=== PATIENT | female | born 1995 | race African-American/Black ===

== ENCOUNTER 2016-12-13 15:12 | Emergency (ER) | payer SELFPAY ==
[2016-12-13 15:41] LABS: Bilirubin Negative (Negative); Blood, Urine Negative (Negative); Glucose, Urine (Dipstick) Negative (Negative); Ketone, Urine Negative (Negative); Nitrite Negative (Negative); Protein, Urine (Dipstick) Negative (Neg-Trace); Urobilinogen 0.2 mg/dL (0.2-1.0)
[2016-12-13] MEDS ORDERED: Lidocaine Viscous Sol 2% 15 ml UD Cup ONE (15:50)
[2016-12-13] MEDS ORDERED: Mag-Al Plus 1200 MG/1200 MG/120 MG/30 ML UDCUP ONE (15:51)
[2016-12-13] MEDS ORDERED: Ondansetron ODT 4 MG TAB ONE (15:52)
--- NOTE | 2016-12-13 16:20 | ERRECORD ---
[facility] EMERGENCY RECORD HPI GENERAL (15:31 KNGU) CHIEF COMPLAINT: Patient presents for evaluation of epigastric pain. HISTORIAN: History provided by patient, per patient hx of peptic ulcer / with epigastric pain after eating a hot and spicy lunch / nausea/ vomiting / no blood / no diarrhea no fever or chills. MECHANISM OF INJURY: Known mechanism. LOCATION: Symptoms are localized, most severe to epigastric region. QUALITY: Pain is dull in nature. SEVERITY: Maximum severity of symptoms moderate, Currently symptoms are mild. TIME COURSE: Gradual onset of symptoms, Symptoms are improving. ASSOCIATED WITH: No associated symptoms. EXACERBATED BY: Patient's condition exacerbated by spicy food. RELIEVED BY: Nothing tried for relief. ROS (15:33 KNGU) CONSTITUTIONAL: Negative constitutional review of systems. CARDIOVASCULAR: Negative cardiovascular review of systems. RESPIRATORY: Negative respiratory review of systems. GI: Historian reports abdominal pain, denies diarrhea, reports nausea, reports vomiting. GENITOURINARY FEMALE: Negative genitourinary review of systems. MUSCULOSKELETAL: Negative musculoskeletal review of systems. NEUROLOGIC: Negative neurologic review of systems. NOTES: All systems reviewed, negative except as described above. PAST MEDICAL HISTORY (15:22 BDON) MEDICAL HISTORY: Flu vaccine not up to date, Tetanus not up to date, Past medical history includes history of sexually transmitted disease, GENITAL WARTS, gestational diabetes, bronchitis. FEMALE SURGICAL HISTORY: Patient has no surgical history. PSYCHIATRIC HISTORY: No previous psychiatric history. SOCIAL HISTORY: Patient currently uses tobacco, smokes cigarettes, Lives at home, with family, Patient denies alcohol use, Patient denies drug use. FAMILY HISTORY: Family history is non-contributory to this case. KNOWN ALLERGIES No Known Allergies (Unconfirmed) No Known Drug Allergies CURRENT MEDICATIONS (15:19 BDON) &a-1R&a+25V*p+0X*j4257U*c202B*c15G*c2P*p-0X&a-25V&a+1R Name: Lisa Ramachandran : 1995 F21 MedRec: [id number] AcctNum: [id number] Prepared: [facility] Dec 13, 2016 16:37 by Interface Page 1 of 3 pMD [facility] EMERGENCY RECORD None VITAL SIGNS (15:16 BDON) VITAL SIGNS: BP: 129/67, Pulse: 94, Resp: 18, Temp: 99.0 (Oral), Pain: 7, O2 sat: 98, Time: 12/13/2016 15:16. PHYSICAL EXAM (15:36 KNGU) CONSTITUTIONAL: Vital signs reviewed, Patient afebrile, Pulse normal, Blood pressure normal, Respiratory rate normal, Patient appears non toxic, Patient appears pain free, Patient alert and oriented to person, place and time. HEAD: Head exam normal. EYES: Eye exam normal. RESPIRATORY CHEST: Respiratory and chest exam normal. CARDIOVASCULAR: Cardiovascular assessment normal. ABDOMEN FEMALE: Abdominal exam included findings of abdomen tender, to the epigastric region, mild intensity, Bowel sounds normal, no distension, no mass, no pulsatile masses, no peritoneal signs, Rovsing's sign absent, no inguinal hernia, no umbilical hernia. BACK: Back exam normal. SKIN: Skin exam normal. PSYCHIATRIC: Psychiatric exam included findings of patient oriented to person place and time. MEDICATION ADMINISTRATION SUMMARY Drug Name: ondansetron, Dose Ordered: 4 mg, Route: Sublingual, Status: Given, Time: 15:57 12/13/2016, Drug Name: GI COCKTAIL - WHITE, Dose Ordered: 40 mL, Route: Oral, Status: Given, Time: 15:56 12/13/2016, Detailed record available in Medication Service section. PROBLEM LIST No recorded problems DIAGNOSIS (15:56 KNGU) FINAL: PRIMARY: peptic ulcer. PRESCRIPTION acetaminophen-codeine: TABLET : 300 mg-30 mg : ORAL : Quantity: 1 Unit: tab(s) Route: ORAL Schedule: every 8 hours PRN Dispense: 10 Unit: tab(s) May substitute. Refills: No Refills . (15:55 KNGU) NOTES: for pain as needed No Refills. (15:55 KNGU) Zofran ODT: TABLET,DISINTEGRATING : 4 mg : ORAL : Quantity: 1 Unit: tab(s) Route: ORAL Schedule: every 8 hours PRN Dispense: 10 Unit: tab(s) May substitute. Refills: No Refills . (15:56 KNGU) &a-1R&a+25V*p+0X*f0751W*c202B*c15G*c2P*p-0X&a-25V&a+1R Name: Lisa Ramachandran : 1995 F21 MedRec: [id number] AcctNum: [id number] Prepared: SatDec 13, 2016 16:37 by Interface Page 2 of 3 pMD [facility] EMERGENCY RECORD NOTES: for nausea vomiting symptoms as needed No Refills. (15:56 KNGU) DISPOSITION PATIENT: Disposition Type: Discharge, Disposition: *Discharge Home. (15:56 KNGU) Patient left the department. (16:13 BDON) Donis: NEFTALY=FADUMO Campbell, Soco CONRAD=MD Kaity, Xenia &a-1R&a+25V*p+0X*i6215V*c202B*c15G*c2P*p-0X&a-25V&a+1R Name: Lisa Ramachandran : 1995 F21 MedRec: [id number] AcctNum: [id number] Prepared: Cheryl Dec 13, 2016 16:37 by Interface Page 3 of 3 pMD MTDD
--- NOTE | 2016-12-13 16:27 | PICIS ---
[facility] EMERGENCY RECORD TRIAGE (15:18 BDON) TRIAGE NOTES: Vomited 3 times today with generalized abdominal pain, stating it feels like her ulcers. (15:18 BDON) PATIENT: NAME: Lisa Ramachandran, AGE: 21, GENDER: female, : Sat1995, TIME OF GREET: Cheryl Dec 13, 2016 15:13, PREFERRED LANGUAGE: Cambodian, ETHNICITY: Not or , ECODE BILLING MAP: [facility], SSN: [id number], Zip Code: [address], KG WEIGHT: 101.15, PHONE: , , , PERSON ID: [id number], PCP: none. (15:18 BDON) COMPLAINT: ABDOMINAL PAIN,VOMITING. (15:18 BDON) ADMISSION: URGENCY: 4 Non Urgent, ADMISSION SOURCE: Home, TRANSPORT: Walk-in, BED: TRIAGE. (15:18 BDON) ASSESSMENT: Assessment: Epi gastric pain, woke up with it, ate spicy food last night, Symptoms began 5 hours ago. (15:22 BDON) TREATMENTS IN PROGRESS: Treatments given Prehospital: immodium, aspirin, nexxium. (15:22 BDON) PROVIDERS: TRIAGE NURSE: Soco Campbell RN. (15:18 BDON) VITAL SIGNS: BP 129/67, Pulse 94, Resp 18, Temp 99.0, (Oral), Pain 7, O2 Sat 98, Time 12/13/2016 15:16. (15:16 BDON) PREVIOUS VISIT ALLERGIES: No Known Allergies. (15:18 BDON) No Known Allergies. (15:22 BDON) KNOWN ALLERGIES No Known Allergies (Unconfirmed) No Known Drug Allergies CURRENT MEDICATIONS (15:19 BDON) None VITAL SIGNS (15:16 BDON) VITAL SIGNS: BP: 129/67, Pulse: 94, Resp: 18, Temp: 99.0 (Oral), Pain: 7, O2 sat: 98, Time: 12/13/2016 15:16. NURSING ASSESSMENT: ABDOMEN (15:20 [facility]) CONSTITUTIONAL: Complex assessment performed, Patient arrives ambulatory, Gait steady, History obtained from patient, Patient appears, Withdrawn, Patient cooperative, Patient alert, Oriented to person, place and time, Skin warm, Skin dry, Skin normal in color, Pt reports epigastric abdominal pain and 3 episodes of vomiting today. Reports eating spicy foods last night. PAIN: aching pain, cramping pain, to the epigastric region, on a scale 0-10 patient rates pain as 7. ABDOMEN: Abdomen assessment findings include abdomen symmetrical, Abdomen soft, tender, to the epigastric region, Bowel sounds, hyperactive, to the right lower quadrant, Associated with nausea, Associated with vomiting. SAFETY: Side rails up, Cart/Stretcher in lowest position, Family &a-1R&a+25V*p+0X*s5837H*c202B*c15G*c2P*p-0X&a-25V&a+1R Name: Lisa Ramachandran : 1995 F21 MedRec: [id number] AcctNum: [id number] Prepared: SatDec 13, 2016 16:38 by Interface Page 1 of 6 pMD [facility] EMERGENCY RECORD at bedside, Call light within reach, Hospital ID band on. NURSING PROCEDURE: DISCHARGE NOTE (16:07 BDON) DISCHARGE: Patient discharged to home, ambulating without assistance, Summary of Care printed/ provided, Patient requested and was provided an electronic copy of Discharge Instructions, Transition record given to patient, Discharge instructions given to patient, Simple or moderate discharge teaching performed, Prescriptions given and instructions on side effects given, Medication reconciliation form given, Above person(s) verbalized understanding of discharge instructions and follow-up care, Patient treated and evaluated by physician. NURSING PROCEDURE: NURSE NOTES (15:34 BDON) NURSES NOTES: Patient assisted to bathroom with steady gait. ORDER DETAILS Order Name: Test, Urine (BHCG), Status: Active, Time: 15:24 12/13/2016, User: ANAMARIA, - Ordered for: MD Briceno Kim, - Entered by: MD Briceno Kim - [facility] Dec 13, 2016 15:24, - Quantity: 1, Order Name: Urinalysis w/ Rflx Microscopic, Status: Active, Time: 15:24 12/13/2016, User: ANAMARIA, - Ordered for: MD Briceno Kim, - Entered by: MD Kaity Xenia - [facility] Dec 13, 2016 15:24, - Quantity: 1. MEDICATION ADMINISTRATION SUMMARY Drug Name: ondansetron, Dose Ordered: 4 mg, Route: Sublingual, Status: Given, Time: 15:57 12/13/2016, Drug Name: GI COCKTAIL - WHITE, Dose Ordered: 40 mL, Route: Oral, Status: Given, Time: 15:56 12/13/2016, Detailed record available in Medication Service section. MEDICATION SERVICE GI COCKTAIL - WHITE: Order: GI COCKTAIL - WHITE - Dose: 40 mL : Oral Lidocaine Viscous (lidocaine HCl) [10 mL] MAG-AL (magnesium hydroxide/aluminum hydroxide) [30 mL] Schedule: Now Ordered by: Xenia Briceno MD Entered by: Xenia Briceno MD [facility] Dec 13, 2016 15:30 , Acknowledged by: Soco Campbell RN [facility] Dec 13, 2016 15:45 Documented as given by: Soco Campbell RN [facility] Dec 13, 2016 15:56 Patient, Medication, Dose, Route and Time verified prior to administration. Site: Medication administered P.O., Correct patient, time, route, &a-1R&a+25V*p+0X*q9949W*c202B*c15G*c2P*p-0X&a-25V&a+1R Name: Lisa Ramachandran : 1995 F21 MedRec: [id number] AcctNum: [id number] Prepared: SatDec 13, 2016 16:38 by Interface Page 2 of 6 pMD [facility] EMERGENCY RECORD dose and medication confirmed prior to administration, Patient advised of actions and side-effects prior to administration, Allergies confirmed and medications reviewed prior to administration, Patient in position of comfort, Cart in lowest position, Family at bedside. ondansetron: Order: ondansetron - Dose: 4 mg : Sublingual Schedule: Now Ordered by: Xenia Briceno MD Entered by: Xenia Briceno MD [facility] Dec 13, 2016 15:29 , Acknowledged by: Soco Campbell RN [facility] Dec 13, 2016 15:45 Documented as given by: Soco Campbell RN [facility] Dec 13, 2016 15:57 Patient, Medication, Dose, Route and Time verified prior to administration. Site: Medication administered S.L., Correct patient, time, route, dose and medication confirmed prior to administration, Patient advised of actions and side-effects prior to administration, Allergies confirmed and medications reviewed prior to administration. HPI GENERAL (15:31 KNGU) CHIEF COMPLAINT: Patient presents for evaluation of epigastric pain. HISTORIAN: History provided by patient, per patient hx of peptic ulcer / with epigastric pain after eating a hot and spicy lunch / nausea/ vomiting / no blood / no diarrhea no fever or chills. MECHANISM OF INJURY: Known mechanism. LOCATION: Symptoms are localized, most severe to epigastric region. QUALITY: Pain is dull in nature. SEVERITY: Maximum severity of symptoms moderate, Currently symptoms are mild. TIME COURSE: Gradual onset of symptoms, Symptoms are improving. ASSOCIATED WITH: No associated symptoms. EXACERBATED BY: Patient's condition exacerbated by spicy food. RELIEVED BY: Nothing tried for relief. ROS (15:33 KNGU) CONSTITUTIONAL: Negative constitutional review of systems. CARDIOVASCULAR: Negative cardiovascular review of systems. RESPIRATORY: Negative respiratory review of systems. GI: Historian reports abdominal pain, denies diarrhea, reports nausea, reports vomiting. GENITOURINARY FEMALE: Negative genitourinary review of systems. MUSCULOSKELETAL: Negative musculoskeletal review of systems. NEUROLOGIC: Negative neurologic review of systems. NOTES: All systems reviewed, negative except as described above. &a-1R&a+25V*p+0X*c7351U*c202B*c15G*c2P*p-0X&a-25V&a+1R Name: Lisa Ramachandran : 1995 F21 MedRec: [id number] AcctNum: [id number] Prepared: Cheryl Dec 13, 2016 16:38 by Interface Page 3 of 6 pMD [facility] EMERGENCY RECORD PAST MEDICAL HISTORY (15:22 BDON) MEDICAL HISTORY: Flu vaccine not up to date, Tetanus not up to date, Past medical history includes history of sexually transmitted disease, GENITAL WARTS, gestational diabetes, bronchitis. FEMALE SURGICAL HISTORY: Patient has no surgical history. PSYCHIATRIC HISTORY: No previous psychiatric history. SOCIAL HISTORY: Patient currently uses tobacco, smokes cigarettes, Lives at home, with family, Patient denies alcohol use, Patient denies drug use. FAMILY HISTORY: Family history is non-contributory to this case. PHYSICAL EXAM (15:36 KNGU) CONSTITUTIONAL: Vital signs reviewed, Patient afebrile, Pulse normal, Blood pressure normal, Respiratory rate normal, Patient appears non toxic, Patient appears pain free, Patient alert and oriented to person, place and time. HEAD: Head exam normal. EYES: Eye exam normal. RESPIRATORY CHEST: Respiratory and chest exam normal. CARDIOVASCULAR: Cardiovascular assessment normal. ABDOMEN FEMALE: Abdominal exam included findings of abdomen tender, to the epigastric region, mild intensity, Bowel sounds normal, no distension, no mass, no pulsatile masses, no peritoneal signs, Rovsing's sign absent, no inguinal hernia, no umbilical hernia. BACK: Back exam normal. SKIN: Skin exam normal. PSYCHIATRIC: Psychiatric exam included findings of patient oriented to person place and time. EVENTS TRANSFER: Triage to Emergency Triage. (SatDec 13, 2016 15:18 BDON) Emergency Triage to Emergency Room -04. (15:20 BDON) Removed from Emergency Emergency Room -04. (16:13 BDON) PROBLEM LIST No recorded problems DIAGNOSIS (15:56 KNGU) FINAL: PRIMARY: peptic ulcer. DISPOSITION PATIENT: Disposition Type: Discharge, Disposition: *Discharge Home. (15:56 KNGU) Patient left the department. (16:13 BDON) &a-1R&a+25V*p+0X*f6750E*c202B*c15G*c2P*p-0X&a-25V&a+1R Name: Lisa Ramachandran : 1995 F21 MedRec: [id number] AcctNum: [id number] Prepared: SatDec 13, 2016 16:38 by Interface Page 4 of 6 pMD [facility] EMERGENCY RECORD INSTRUCTION (15:57 KNGU) DISCHARGE: PEPTIC ULCER DISEASE (ALL CAUSES). SPECIAL: avoid spicy food continue with nexium take pain /nausea medications as needed Follow-up with your primary physician as needed. PRESCRIPTION acetaminophen-codeine: TABLET : 300 mg-30 mg : ORAL : Quantity: 1 Unit: tab(s) Route: ORAL Schedule: every 8 hours PRN Dispense: 10 Unit: tab(s) May substitute. Refills: No Refills . (15:55 KNGU) NOTES: for pain as needed No Refills. (15:55 KNGU) Zofran ODT: TABLET,DISINTEGRATING : 4 mg : ORAL : Quantity: 1 Unit: tab(s) Route: ORAL Schedule: every 8 hours PRN Dispense: 10 Unit: tab(s) May substitute. Refills: No Refills . (15:56 KNGU) NOTES: for nausea vomiting symptoms as needed No Refills. (15:56 KNGU) IMAGING (16:12 BDON) *DISCHARGE INSTRUCTIONS RECEIPT: Image captured from scanner. *SUPPLY CHARGE SHEET: Image captured from scanner. ADMIN DIGITAL SIGNATURE: FADUMO Campbell, Soco. (16:13 BDON) MD Briceon Kim. (16:31 KNGU) MD Briceno Kim. (16:31 KNGU) RESULTS (15:49 KNGU) LABORATORY: Test, Urine (BHCG) Collection DT: SatDec 13, 2016 15:37, Test - Urine (BHCG) NEGATIVE , Range (NEGATIVE), Method of sensitivity- Indeterminant: results should be repeated, after 48 hours. Positive: results may be detected as early as 4-5 days before a first missed menses. Elimination of BHCG-, Elimination following first trimester D&C: 29-44 Days , Elimination following term : 8-24 Days , Specific [place] 1.028 , Range (1.002-1.036), A dilute urine specimen may, not contain [employer] partnership representative levels of hCG. If is still, suspected, a first morning urine &a-1R&a+25V*p+0X*f1686Z*c202B*c15G*c2P*p-0X&a-25V&a+1R Name: Lisa Ramachandran : 1995 F21 MedRec: [id number] AcctNum: [id number] Prepared: SatDec 13, 2016 16:38 by Interface Page 5 of 6 pMD [facility] EMERGENCY RECORD specimen OR a random blood specimen should, be obtained from the patient 48-72 hours later and re-tested. , . Urinalysis w/ Rflx Microscopic Collection DT: SatDec 13, 2016 15:37, Color Yellow , Range (Yellow), Clarity Clear , Range (Clear), Specific [place], Urine 1.028 , Range (1.002-1.036), pH, Urine 6.0 , Range (5.0-9.0), Leukocyte Negative , Range (Negative), Nitrite Negative , Range (Negative), Protein, Urine (Dipstick) Negative mg/dL, Range (Neg-Trace), Glucose, Urine (Dipstick) Negative mg/dL, Range (Negative), Ketone, Urine Negative mg/dL, Range (Negative), Urobilinogen 0.2 mg/dL, Range (0.2-1.0), Bilirubin Negative , Range (Negative), Blood, Urine Negative , Range (Negative). Donis: NEFTALY=FADUMO Campbell, Soco CONRAD=MD Kaity, Xenia [facility]=FADUMO Grayson, Thuy &a-1R&a+25V*p+0X*u1991G*c202B*c15G*c2P*p-0X&a-25V&a+1R Name: Lisa Ramachandran : 1995 F21 MedRec: [id number] AcctNum: [id number] Prepared: SatDec 13, 2016 16:38 by Interface Page 6 of 6 pMD MTDD
== END 2016-12-13 16:07 | disposition home or self-care (01) ==
LOC: NAV ERS 15:12
DX: K27.9 Peptic ulcer, site unspecified, unspecified as acute or chronic, without hemorrhage or perforation (principal); F17.210 Nicotine dependence, cigarettes, uncomplicated
CPT/HCPCS: 81003; 81025; 99284; Q0162

== ENCOUNTER 2016-12-27 22:21 | Emergency (ER) | payer SELFPAY | END 2016-12-27 23:00 | disposition home or self-care (01) | LOC: NAV ERS 22:21 | DX: L02.416 Cutaneous abscess of left lower limb (principal); F17.210 Nicotine dependence, cigarettes, uncomplicated | CPT/HCPCS: 87529; 99283 ==